=== PATIENT | male | born 1950 | race Caucasian/White ===

== ENCOUNTER → 2016-04-14 | Outpatient (CLI) | payer OTHER ==
[~2016-04-14] MED LIST: AMLO10TA2 PO; ATOR40TA16 PO; LEVO200T4 PO; LEVO25TA4 PO
== END ==
LOC: CLAB 08:16
PROVIDERS: ATTEND Family Medicine
DX: E03.9 Hypothyroidism, unspecified (principal)
CPT/HCPCS: 36415; 84443

== ENCOUNTER 2016-07-15 11:28 | Emergency (ER) | payer OTHER ==
[~2016-07-15] VITALS: Ht 179.1 cm; Wt 80.0 kg
[2016-07-15 11:31] VITALS: BP 162/95; PULSE 81; RESP 16; TEMP 98.8; O2SAT 97
--- NOTE | 2016-07-15 11:35 | PD ---
Physical Exam Time Seen by Provider: 11:33 Narrative 66 y/o male here with laceration to R ankle sustained by a broken piece of a porcelain toilet. C/o minimal pain associated with laceration. Bandaged at triage desk. Ambulatory. Vital signs reviewed. Seen at triage desk. Awaiting bed placement. Data Data Last Documented VS Vital Signs Date Time Temp Pulse Resp B/P Pulse Ox O2 Delivery O2 Flow Rate FiO2 07/15/16 11:31 98.8 81 16 162/95 97 Room Air [facility] Medical Record Reviewed: Yes Supervised Visit with ANNA: Alexei Castellon July 15, 2016 11:35
[2016-07-15] MEDS ORDERED: LIDOCAINE 1%/EPINEPHrine 1:100,000 SOLN 20 ML VIAL INFIL ONE (11:45)
--- NOTE | 2016-07-15 11:55 | PD ---
HPI Chief Complaint: Laceration/Skin Injury Time Seen by Provider: 11:45 Travel History International Travel<30 days: No Contact w/Intl Traveler<30days: No Traveled to known affect area: No History of Present Illness HPI 66-year-old male presents emergency Department with complaint of a laceration to the lateral aspect of his right ankle from a piece of porcelain today. Unknown tetanus vaccination status. Denies paresthesias, loss of sensation, decreased motion, decreasing to the affected joint. Has not taken any medication to alleviate symptoms. Has applied pressure and a bandage to control bleeding. Has no other medical complaints. No other modifying factors or associated signs and symptoms. PFSH Past Medical History Arthritis: Yes Cancer: No Cardiovascular Problems: Yes Diminished Hearing: No Endocrine: Yes Gastrointestinal Disorders: No Genitourinary: Yes Implanted Vascular Access Dvce: No Kidney Stones: Yes Musculoskeletal: Yes Neurologic: Yes Psychiatric: No Reproductive: No Respiratory: No Immunizations Current: No Thyroid Disease: Yes Tetanus Vaccination: Unknown Influenza Vaccination: No Past Surgical History Abdominal Surgery: Yes (APPENDECTOMY) Appendectomy: Yes Other Surgery: Yes Social History Alcohol Use: Yes (WEEKLY, BEER) Tobacco Use: Yes (RARELY) Substance Use: No Allergies-Medications (Allergen,Severity, Reaction): Coded Allergies: No Known Allergies (Unverified , 05/08/16) Reported Meds & Prescriptions Reported Meds & Active Scripts Active Amlodipine (Amlodipine Besylate) 10 Mg Tab 10 Mg PO DAILY Levothyroxine (Levothyroxine Sodium) 25 Mcg Tab 25 Mcg PO DAILY Atorvastatin (Atorvastatin Calcium) 40 Mg Tab 40 Mg PO HS Levothyroxine (Levothyroxine Sodium) 200 Mcg Tab 200 Mcg PO DAILY Review of Systems Except as stated in HPI: all other systems reviewed are Neg Physical Exam Narrative GENERAL: Well-nourished, well-developed male patient, in no acute distress SKIN: Warm and dry. Approximately 1-1/2; laceration to the lateral aspect of the right ankle; without erythema, edema; with minimal amount bright red drainage. Right lower 20 supple and non-tense with 2+ pedal pulse and sensory intact without erythema or edema. HEAD: Atraumatic. Normocephalic. EYES: Pupils equal and round. No scleral icterus. No injection or drainage. ENT: Mucosa pink and moist. Airway patent. NECK: Trachea midline. CARDIOVASCULAR: Regular rate. RESPIRATORY: No accessory muscle use. GASTROINTESTINAL: Flat. MUSCULOSKELETAL: No obvious deformities. No clubbing. No cyanosis. No edema. NEUROLOGICAL: Awake and alert. Oriented 3. No obvious cranial nerve deficits. Motor grossly within normal limits. Normal speech. PSYCHIATRIC: Appropriate mood and affect; insight and judgment normal. Data Data Last Documented VS Vital Signs Date Time Temp Pulse Resp B/P Pulse Ox O2 Delivery O2 Flow Rate FiO2 07/15/16 11:31 98.8 81 16 162/95 97 Room Air Orders Lidocai-Epi 1%-1:100,000 Inj (Xylocaine- (07/15/16 11:45) Tetanus/Diphtheria Tox Adult (Tetanus/Di (07/15/16 12:00) MDM Medical Decision Making Medical Screen Exam Complete: Yes Emergency Medical Condition: Yes Medical Record Reviewed: Yes Differential Diagnosis Laceration, contusion, abrasion Narrative Course 66-year-old male with laceration to his right ankle. Medical records reviewed and do not find tetanus status. Tetanus updated in the ER. My procedure note for laceration repair. Ibuprofen prescribed for home. Patient verbalizes understanding and agreement with treatment plan. Patient is medically cleared and stable for discharge. Discussed reasons to return to the emergency department. Instructed patient to follow up with primary care provider. Patient agrees with treatment plan. The patients vital signs are stable and the patient is stable for outpatient follow-up and treatment. Patient discharged home, stable and in no acute distress. Procedures Procedure Narrative LACERATION LOCATION: Right lateral ankle LENGTH: 1-1/2 cm NUMBER OF STITCHES/FOREST: 2 forest REPAIR: The area of the laceration was prepped with Betadine and sterilely draped. The laceration was infiltrated with 1% lidocaine with epinephrine. The wound was copiously irrigated and explored without evidence of foreign body, tendon injury or neurovascular injury. The wound was closed using forest. This was a single layer repair. A sterile dressing was applied. The patient was advised to keep the dressing clean and dry. Patient tolerated the procedure well. Diagnosis Primary Impression: Laceration of ankle Qualified Code: S91.011A - Laceration of ankle, right, initial encounter Referrals: Primary Care Physician Patient Instructions: Acute Wound Care (ED), General Instructions, Laceration ( ED), Staple Care (ED) Departure Forms: Tests/Procedures, Work Release Enter return to work date: July 16, 2016 Additional Instructions: Keep area clean and dry Ibuprofen or Tylenol as directed and as needed for pain and inflammation Ice pack to area as needed to decrease pain Return to the emergency department or follow-up with primary care provider in 10 -14 days for staple removal Follow up with primary care provider Return to the emergency department immediately with worsening of symptoms, particularly if reddened streaks up or down the affected extremity from the suture site, fever, numbness/tingling in the affected extremity, loss of sensation in the affected extremity, severe swelling of the affected Med/Other Pt SpecificInfo: Prescription(s) given Disposition: 01 DISCHARGE HOME Condition: Stable Kandice Astudillo July 15, 2016 11:54
[2016-07-15] MEDS ORDERED: TETANUS/DIPHTHERIA TOXOID ADULT 0.5 ML VIAL IM ONE (12:00)
[2016-08-14] MEDS ORDERED: LEVO200T4 PO (11:56)
== END 2016-07-15 12:45 | disposition home or self-care (01) ==
LOC: NEPK 11:28
DX: S91.011A Laceration without foreign body, right ankle, initial encounter (principal); E07.9 Disorder of thyroid, unspecified; Z72.0 Tobacco use; Z23 Encounter for immunization; Z87.442 Personal history of urinary calculi; W26.9XXA Contact with unspecified sharp object(s), initial encounter; Y93.9 Activity, unspecified; Y92.9 Unspecified place or not applicable; Y99.8 Other external cause status
CPT/HCPCS: 12001; 90471; 90714

== ENCOUNTER → 2016-08-08 | Outpatient (CLI) | payer OTHER ==
[2016-08-08 09:15] LABS: AUTOMATED NEUTROPHIL # 3.9 TH/MM3 (1.8-7.7); BASOPHIL # 0.1 TH/MM3 (0-0.2); BASOPHIL % 1.1 % (0.0-2.0); EOSINOPHIL # 0.3 TH/MM3 (0-0.4); EOSINOPHIL % 4.6 % (0.0-4.0); HEMATOCRIT 36.9 % (39.0-51.0); HEMO FLAGS DIFF FINAL; LYMPH % 11.7 % (9.0-44.0); LYMPHOCYTE # 0.6 TH/MM3 (1.0-4.8); MEAN CELL VOLUME 87.3 FL (80.0-100.0); MEAN CORPUSCULAR HGB CONC 33.2 % (32.0-36.0); MONO % 12.1 % (0.0-8.0); NEUT % 70.5 % (16.0-70.0); PLATELET COUNT 190 TH/MM3 (150-450); RED BLOOD COUNT 4.22 MIL/MM3 (4.50-5.90); RED CELL DISTRIBUTION WIDTH 14.6 % (11.6-17.2); WHITE BLOOD COUNT 5.5 TH/MM3 (4.0-11.0)
[2016-08-08 09:55] LABS: ANION GAP 9 MEQ/L (5-15); AST (GOT) 22 U/L (15-37); BICARBONATE 21.7 MEQ/L (21.0-32.0); BLOOD UREA NITROGEN 21 MG/DL (7-18); CHLORIDE 109 MEQ/L (98-107); GLOMERULAR FILTRATION RATE 32 ML/MIN (>89); GLUCOSE,FASTING 102 MG/DL (74-99); POTASSIUM 4.1 MEQ/L (3.5-5.1); SODIUM (NA) 140 MEQ/L (136-145)
[2016-08-08 09:57] LABS: ALT (GPT) 24 U/L (12-78)
[2016-08-08 10:07] LABS: ALKALINE PHOSPHATASE 84 U/L (45-117); HDL CHOLESTEROL 36.1 MG/DL (40.0-60.0); LDL CHOLESTEROL 38 MG/DL (0-99); TOTAL BILIRUBIN ADULT 0.3 MG/DL (0.2-1.0)
== END ==
LOC: CLAB 08:50
PROVIDERS: ATTEND Family Medicine
DX: E03.9 Hypothyroidism, unspecified (principal); E78.5 Hyperlipidemia, unspecified; I10 Essential (primary) hypertension; Z72.0 Tobacco use
CPT/HCPCS: 36415; 80053; 80061; 84443; 85025

== ENCOUNTER → 2016-08-14 | Outpatient (CLI) | payer OTHER ==
[2016-08-14 13:02] LABS: BICARBONATE 23.9 MEQ/L (21.0-32.0); POTASSIUM 3.9 MEQ/L (3.5-5.1)
== END ==
LOC: CLAB 12:12
PROVIDERS: ATTEND Family Medicine
DX: N19 Unspecified kidney failure (principal)
CPT/HCPCS: 36415; 80069

== ENCOUNTER → 2016-09-15 | Outpatient (CLI) | payer OTHER ==
[~2016-09-15] MED LIST changes: -LEVO25TA4 PO
== END ==
LOC: CLAB 09:27
PROVIDERS: ATTEND Family Medicine
DX: E03.9 Hypothyroidism, unspecified (principal)
CPT/HCPCS: 36415; 84443

== ENCOUNTER 2017-07-10 12:16 | Emergency (ER) | payer OTHER ==
[~2017-07-10] VITALS: Ht 177.8 cm; Wt 80.0 kg
[2017-07-10 12:47] VITALS: BP 160/54; PULSE 74; RESP 18; TEMP 98.6; O2SAT 96
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
--- NOTE | 2017-07-10 13:50 | RADRPT ---
EXAM DATE/TIME: 07/10/2017 12:58 [facility] COMPARISON: No previous studies available for comparison. INDICATIONS : Pain with swelling, prior fractures. MEDICAL HISTORY : Prior fracture SURGICAL HISTORY : None. ENCOUNTER: Initial ACUITY: 3 days PAIN SCORE: 9/10 LOCATION: Right foot FINDINGS: Three view examination of the right foot demonstrates no soft tissue swelling, dislocation, or fractu re. The tarsal bones appear intact. The interphalangeal and metatarsophalangeal joints are intact. The calcaneus is intact. Bony mineralization is normal. CONCLUSION: Negative fracture Tommy Oliva MD FACR on July 10, 2017 at 13:48 Board Certified Radiologist. This report was verified electronically.
--- NOTE | 2017-07-10 13:50 | RADRPT ---
EXAM DATE/TIME: 07/10/2017 13:01 [facility] COMPARISON: KNEE RIGHT COMPLETE (4VWS), December 04, 2014, 12:04. INDICATIONS : Pain with swelling. MEDICAL HISTORY : None. SURGICAL HISTORY : None. ENCOUNTER: Initial ACUITY: 3 days PAIN SCORE: 9/10 LOCATION: Right knee. FINDINGS: Degenerative changes are noted on the medial side. Articular calcifications are eviden t. Fracture is not appreciated. Trace joint effusion is evident. CONCLUSION: Degenerative changes with trace joint effusion. Fracture not appreciated. Tommy Oliva MD FACR on July 10, 2017 at 13:47 Board Certified Radiologist. This report was verified electronically.
--- NOTE | 2017-07-10 13:52 | RADRPT ---
EXAM DATE/TIME: 07/10/2017 12:50 [facility] COMPARISON: No previous studies available for comparison. INDICATIONS : Swelling with pain and bruising. MEDICAL HISTORY : Prior fractures SURGICAL HISTORY : none ENCOUNTER: Initial ACUITY: 3 days PAIN SCORE: 8/10 LOCATION: Right tibia. FINDINGS: Two view examination of the right tibia demonstrates no evidence of fracture or dislocation. Bony mi neralization is normal. The soft tissue structures are intact. CONCLUSION: Negative for fracture or radiopaque foreign body Tommy Oliva MD FACR on July 10, 2017 at 13:49 Board Certified Radiologist. This report was verified electronically.
[2017-07-10 16:24] VITALS: BP 142/75
== END 2017-07-10 16:25 | disposition home or self-care (01) ==
LOC: NEDAMB 12:16
DX: M79.604 Pain in right leg (principal); E03.9 Hypothyroidism, unspecified; Z79.899 Other long term (current) drug therapy
CPT/HCPCS: 73564; 73590; 73630; 80307; 93971; 99285

== ENCOUNTER 2017-07-10 19:15 | Emergency (ER) | payer SELFPAY ==
[2017-07-10 19:26] VITALS: BP 143/76; PULSE 68; RESP 16; TEMP 97.8; O2SAT 95
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
== END 2017-07-10 20:56 | disposition home or self-care (01) ==
LOC: NEDAMB 19:15
DX: M79.604 Pain in right leg (principal)
CPT/HCPCS: 99282